=== PATIENT | female | born 1955 | race Caucasian/White ===

== ENCOUNTER → 2016-07-21 | Outpatient (CLI) | payer OTHER | LOC: M WUC 08:47 | PROVIDERS: ATTEND Emergency Medicine | DX: E11.9 Type 2 diabetes mellitus without complications (principal) ==

== ENCOUNTER → 2016-08-05 | Outpatient (CLI) | payer OTHER ==
--- NOTE | 2016-08-05 12:51 | REPMRS ---
Patient History The patient states she had a clinical breast exam in January 2016. Benign radio exam breast specimen of the right breast, June 26, 2015. Benign stereotatic loc for ea lesion of the right breast, June 26, 2015. Digital Mammo Screening Bilat: August 05, 2016 - Exam #: [id number] Bilateral CC and MLO view(s) were taken. Technologist: Hallie Ledezma, Technologist Prior study comparison: January 17, 2016, right breast digital mammo diagnostic unilateral performed at [facility]. April 12, 2015, digital bilateral screening mammo, performed at [facility]. December 14, 2013, digital bilateral screening mammo, performed at [facility]. FINDINGS: The breast tissue is almost entirely fat. There has been no change in the appearance of the mammogram from the prior studies. There is a needle biopsy marker clip in the right breast. There is no interval development of dominant mass, architectural distortion, or clustered microcalcification typical of malignancy. ASSESSMENT: BI-RADS/ACR category 1 mammogram. Negative. Recommendation Routine screening mammogram of both breasts in 1 year (for women over age 40). This mammogram was interpreted with the aid of an FDA-approved computer-aided dectection system. Electronically Signed By: Brandon Osuna MD 08/05/16 0500
== END ==
LOC: M RAD 11:46
PROVIDERS: ATTEND Emergency Medicine
DX: Z12.31 Encounter for screening mammogram for malignant neoplasm of breast (principal); E65 Localized adiposity